=== PATIENT | female | born 1945 | race Hispanic/Latino ===

== ENCOUNTER 2017-03-16 10:24 | Day surgery (SDC) | payer MEDICARE, OTHER ==
[2017-03-16] MEDS ORDERED: Lactated Ringer's 500 ML IV ONE (10:59)
[2017-03-16] MEDS ORDERED: Propofol 10 mg/ml Inj (20 ML) ONE (11:55)
[2017-03-16 12:17] VITALS: TEMP 97
[2017-03-16 12:38] VITALS: BP 123/62; PULSE 52; RESP 15; O2SAT 98
== END 2017-03-16 12:50 | disposition home or self-care (01) ==
LOC: H.ENDO 10:24
PROVIDERS: ATTEND Internal Medicine Gastroenterology
DX: R10.13 Epigastric pain (principal); R12 Heartburn; K31.9 Disease of stomach and duodenum, unspecified
CPT/HCPCS: 43239; 88305; J2001; J2704; J7120